=== PATIENT | male | born 1955 | race African-American/Black ===

== ENCOUNTER 2022-07-03 14:06 | Emergency (ER) | payer SELFPAY | END 2022-07-03 16:02 | disposition home or self-care (01) | LOC: BURERS 14:06 | DX: J22 Unspecified acute lower respiratory infection (principal); F17.210 Nicotine dependence, cigarettes, uncomplicated | CPT/HCPCS: 71045 ==

== ENCOUNTER 2022-11-13 14:22 | Emergency (ER) | payer MEDICARE | END 2022-11-13 15:05 | disposition home or self-care (01) | LOC: BURERS 14:22 | DX: N61.0 Mastitis without abscess (principal); F17.210 Nicotine dependence, cigarettes, uncomplicated | CPT/HCPCS: 99283 ==